=== PATIENT | male | born 1955 | race American Indian/Alaskan Native ===

== ENCOUNTER 2018-05-04 11:07 | Outpatient (CLI) | payer BC ==
--- NOTE | 2018-05-04 13:46 | Magnetic Resonance Report ---
MR LOWER EXTREMITY NON-JOINT RIGHT WITHOUT CONTRAST History: Osteomyelitis of right foot. Technique: Multisequence, multiplanar MRI without IV gadolinium was obtained through the ankle and foot. Comparison: None at this facility. Findings: There is abnormal decreased T1 signal and increased T2 signal in the fifth metatarsal shaft highly suggestive of osteomyelitis. The remaining bony structures in the visualized ankle and foot are within normal limits. No fracture or bone lesion or additional areas suspicious for osteomyelitis. There is suggestion of an early fluid collection in the plantar soft tissues inferior to the fifth metatarsal measuring approximately 2 x 1 x 1 cm which could represent early development of a soft tissue abscess. There is nonspecific subcutaneous edema on the dorsum of the foot and ankle consistent with cellulitis. The musculotendinous structures the ankle and foot appear intact. IMPRESSION: Osteomyelitis of the fifth metatarsal. Probable early plantar abscess inferior to the fifth metatarsal as described. Cellulitis.
== END 2018-05-04 11:08 | disposition home or self-care (01) ==
LOC: MRI 11:07
PROVIDERS: ATTEND Family Medicine
DX: M86.8X7 Other osteomyelitis, ankle and foot (principal)

== ENCOUNTER 2018-12-04 07:51 | Outpatient (CLI) | payer BC | END 2018-12-04 07:52 | disposition home or self-care (01) | LOC: WOUND 07:51 | CPT/HCPCS: 99183; G0277 ==

== ENCOUNTER 2018-12-07 07:48 | Outpatient (CLI) | payer BC | END 2018-12-07 07:49 | disposition home or self-care (01) | LOC: WOUND 07:48 | CPT/HCPCS: 99183; G0277 ==

== ENCOUNTER 2018-12-08 07:52 | Outpatient (CLI) | payer BC | END 2018-12-08 07:53 | disposition home or self-care (01) | LOC: WOUND 07:52 | CPT/HCPCS: 99183; G0277 ==

== ENCOUNTER 2018-12-09 07:49 | Outpatient (CLI) | payer BC | END 2018-12-09 07:50 | disposition home or self-care (01) | LOC: WOUND 07:49 | CPT/HCPCS: 99183; G0277 ==

== ENCOUNTER 2018-12-10 07:53 | Outpatient (CLI) | payer BC | END 2018-12-10 07:54 | disposition home or self-care (01) | LOC: WOUND 07:53 | CPT/HCPCS: 99183; G0277 ==

== ENCOUNTER 2018-12-11 07:54 | Outpatient (CLI) | payer BC | END 2018-12-11 07:55 | disposition home or self-care (01) | LOC: WOUND 07:54 | CPT/HCPCS: 99183; G0277 ==

== ENCOUNTER 2018-12-14 07:54 | Outpatient (CLI) | payer BC | END 2018-12-14 07:55 | disposition home or self-care (01) | LOC: WOUND 07:54 | CPT/HCPCS: 99183; G0277 ==

== ENCOUNTER 2018-12-15 07:51 | Outpatient (CLI) | payer BC | END 2018-12-15 07:52 | disposition home or self-care (01) | LOC: WOUND 07:51 | CPT/HCPCS: 99183; G0277 ==

== ENCOUNTER 2018-12-16 08:27 | Outpatient (CLI) | payer BC | END 2018-12-16 08:28 | disposition home or self-care (01) | LOC: WOUND 08:27 | CPT/HCPCS: 99183; G0277 ==

== ENCOUNTER 2018-12-17 07:55 | Outpatient (CLI) | payer BC | END 2018-12-17 07:56 | disposition home or self-care (01) | LOC: WOUND 07:55 | PROVIDERS: ATTEND Surgery | DX: S91.301D Unspecified open wound, right foot, subsequent encounter (principal); M86.671 Other chronic osteomyelitis, right ankle and foot; E78.49 Other hyperlipidemia; I10 Essential (primary) hypertension; H40.9 Unspecified glaucoma; X58.XXXD Exposure to other specified factors, subsequent encounter | CPT/HCPCS: 99183; G0277 ==

== ENCOUNTER 2019-05-06 10:07 | Outpatient (CLI) | payer BC ==
[2019-05-06] MEDS ORDERED: XYLOCAINE TOPICAL 4% TP ONE (12:00)
[2019-05-07] MEDS ORDERED: AD OINTMENT TP SCH (10:00)
== END 2019-05-06 10:08 | disposition home or self-care (01) ==
LOC: WOUND 10:07
PROVIDERS: ATTEND Surgery
DX: L89.893 Pressure ulcer of other site, stage 3 (principal); I10 Essential (primary) hypertension; E78.5 Hyperlipidemia, unspecified; M19.90 Unspecified osteoarthritis, unspecified site
CPT/HCPCS: 11042; G0463; 99215

== ENCOUNTER 2019-05-13 10:08 | Outpatient (CLI) | payer BC | END 2019-05-13 10:09 | disposition home or self-care (01) | LOC: WOUND 10:08 | PROVIDERS: ATTEND Surgery | DX: L89.893 Pressure ulcer of other site, stage 3 (principal); I10 Essential (primary) hypertension; E78.5 Hyperlipidemia, unspecified; M19.90 Unspecified osteoarthritis, unspecified site | CPT/HCPCS: 97597 ==